=== PATIENT | female | born 1975 | race Two or more races ===

== ENCOUNTER 2022-02-01 18:21 | Emergency (ER) | payer OTHER ==
[2022-02-01 18:51] VITALS: BP 115/73; PULSE 89; TEMP 98.3; BMI 33.2
[2022-02-01] MEDS ORDERED: KETOROLAC TROMETHAMINE 30 MG/1 ML VIAL IM ONE (20:23)
[2022-02-01] MEDS ORDERED: KETOROLAC TROMETHAMINE 30 MG/1 ML VIAL ONE (20:26)
== END 2022-02-01 20:33 | disposition home or self-care (01) ==
LOC: JERFT 18:21
PROC: 3E0233Z Introduction of Anti-inflammatory into Muscle, Percutaneous Approach (ICD-10-PCS; principal; 2022-02-01)
DX: M43.6 Torticollis (principal)
CPT/HCPCS: 99284-25

== ENCOUNTER 2022-07-07 14:12 | Emergency (ER) | payer OTHER ==
[2022-07-07 14:28] VITALS: BP 117/72; PULSE 75; RESP 18; TEMP 99; BMI 31.2
[2022-07-07] MEDS ORDERED: IBUPROFEN 400 MG TABLET (FP) PO ONE ×2 (14:46→15:18)
[2022-07-07 15:51] LABS: ALBUMIN 3.6 g/dl (3.4-5.0); BASO % 0.4 % (0-2.0); BLOOD UREA NITROGEN 8.4 mg/dL (7-18); CALCIUM 9.1 mg/dL (8.5-10.1); EOS % 2.9 % (0-4.5); HEMATOCRIT 42.5 % (32.4-45.2); HEMOGLOBIN 14.8 GM/dL (10.7-15.3); LYMPH % 28.7 % (8-40); MCH 32.4 pg (25.7-33.7); MCHC 34.9 g/dl (32.0-36.0); MEAN CELL VOLUME 92.8 fl (80-96); MEAN PLT VOLUME 7.9 fl (7.5-11.1); MONO % 9.7 % (3.8-10.2); NEUT % 58.3 % (42.8-82.8); PLATELET COUNT 220 10^3/uL (134-434); RBC 4.58 M/mm3 (3.60-5.2); RDW 12.7 % (11.6-15.6); WHITE BLOOD COUNT 5.2 K/mm3 (4.0-10.0)
[2022-07-07 15:54] LABS: CREATININE 0.7 mg/dL (0.55-1.3)
[2022-07-07 15:56] LABS: BILIRUBIN,TOTAL 0.4 mg/dL (0.2-1); TOT PROT 7.4 g/dl (6.4-8.2)
== END 2022-07-07 17:28 | disposition home or self-care (01) ==
LOC: JER 14:12
DX: R07.9 Chest pain, unspecified (principal)
CPT/HCPCS: 36415; 71045-TC-FY; 80053; 84484; 85025; 93005; 93010; 99285-25